=== PATIENT | female | born 1970 | race Asian ===

== ENCOUNTER 2020-06-07 01:44 | Emergency (ER) | payer MEDICAID, OTHER ==
--- NOTE | 2020-06-07 02:45 | ED Physician Documentation ---
History of Present Illness - Stated complaint Stated Complaint: RT KNEE PX - Chief complaint Chief Complaint: Ext Problem - History obtained from History obtained from: Patient - History of Present Illness Timing: Chronic (worsening past 1-2 days) Pain level now: 3 Improved by: rest Worsened by: weight-bearing, flexion, palpation - Additonal information Additional information: "my right knee hurts", "I only have twenty percent meniscus left". Patient says she has had arthroscopic surgery twice on the right knee for meniscal tears. She describes chronic pain that is worse the past few days. She is in ED with a family member who is also registered as an ED patient. Patient denies fever, denies recent injury. Review of Systems Constitutional: denies: Fever, Chills, Sweats Skin: denies: Rash Musculoskeletal: reports: Joint pain, Pain with weight bearing. denies: Joint swelling Neurologic: denies: Focal weakness, Numbness PD PAST MEDICAL HISTORY - Past Medical History Past Medical History: Yes Cardiovascular: None Respiratory: None Neuro: None Endocrine/Autoimmune: None GI: None UI ARCHITECT: None : None HEENT: None Psych: None Musculoskeletal: Osteoarthritis Derm: None - Past Surgical History Past Surgical History: Yes General: Appendectomy Ortho: Arthroscopic surgery /UI ARCHITECT: section - Present Medications Home Medications: Ambulatory Orders Medication Instructions Recorded Confirmed HYDROcod/ACETAM 5/325 [[place] 5/325] 1 - 2 ea PO Q6H PRN #15 tablet 06/07/20 - Allergies Allergies/Adverse Reactions: Allergies Allergy/AdvReac Type Severity Reaction Status Date / Time No Known Drug Allergies Allergy Verified 06/07/20 03:39 - Social History Does the pt smoke?: No Smoking Status: Never smoker Does the pt drink ETOH?: Yes Does the pt have substance abuse?: No - Immunizations Immunizations are current?: Yes - POLST Patient has POLST: No PD ED PE NORMAL - Vitals Vital signs reviewed: Yes - General General: Alert and oriented X 3, No acute distress, Well developed/nourished - Derm Derm: Normal color, Warm and dry, No rash - Extremities Extremities: No deformity, No edema, Other (mild TTP right knee at medial aspect. FROM although increased pain reported with full flexion. right knee is not swollen, erythematous, hot to touch. There is no swelling of the RLE) - Neuro Neuro: No motor deficit, No sensory deficit Results - Vitals Vitals: Oxygen O2 Source Room air PD MEDICAL DECISION MAKING - ED course Complexity details: considered differential, d/w patient ED course: c/o right knee pain without recent injury and describes h/o right knee pathology that has required two arthroscopic surgeries for problems with meniscal tears. Exam does not suggest acute/emergent pathology that would indicate or benefit from emergent testing (no findings to suggest infection, pathologic fracture, vascular problem such as DVT). Recommend rest, rx analgesic, return if worse, f/u with PMD or orthopedics Departure - Departure Disposition: 01 Home, Self Care Clinical Impression: Knee pain Qualifiers: Chronicity: chronic Laterality: right Qualified Code(s): M25.561 - Pain in right knee Condition: Good Instructions: ED Knee Pain UKO Prescriptions: HYDROcod/ACETAM 5/325 [[place] 5/325] 1 - 2 ea PO Q6H PRN #15 tablet PRN Reason: Pain Comments: Follow up with your orthopedic surgeon; call to arrange for next available appointment. Discharge Date/Time: 06/07/20 03:42
[2020-06-07] MEDS ORDERED: HYDROcod/ACETAM 5/325 MG TABLET PO STA (03:12)
[2020-06-07 03:44] VITALS: BP 132/82
== END 2020-06-07 03:42 | disposition home or self-care (01) ==
LOC: ED 01:44
DX: M25.561 Pain in right knee (principal); G89.29 Other chronic pain
CPT/HCPCS: 99282; 99283; A9270

== ENCOUNTER 2020-08-22 09:00 | Outpatient (CLI) | payer OTHER | END 2020-08-22 23:59 | disposition home or self-care (01) | LOC: COV 09:00 | PROVIDERS: ATTEND Family Medicine | DX: Z20.822 Contact with and (suspected) exposure to COVID-19 (principal) ==